=== PATIENT | female | born 1955 | race Two or more races ===

== ENCOUNTER → 2024-10-10 | Outpatient (CLI) | payer MEDICARE, SELFPAY ==
--- NOTE | 2024-10-10 14:56 | XR_ITS ---
Examination: MRI pelvis with intravenous contrast. MRI pelvis without intravenous contrast. Date and time of exam: October 10, 2024 1530 hours INDICATIONS: Lifting injury to the abdomen and pelvis 4 months ago with pelvic pain radiating down the legs difficulty paresthesias in the feet, abnormally thickened endometrial stripe 15 mm on pelvic sonogram September 17, 2024 Technique: Multiple axial, sagittal and coronal sections of the pelvis obtained. Transverse images, TR 6020, TE 107. T1 weighted transverse images, TR 582, TE 9.5. T2-weighted sagittal images, TR 4000, TE 105. T2-weighted sagittal images, TR 4000, TE 5. Coronal images, TR 4210, TE 107. Axial and coronal images are obtained post 12 cc intravenous injection, gadolinium. Findings: Uterus 8.54 x 5 cm Endometrial stripe is not thickened on this study and no enhancing mass on the postcontrast images is noted Bilateral ovarian follicular cysts as well as a simple 23 mm left ovarian cyst No free fluid in the pelvis No pelvic lymphadenopathy Bladder intact IMPRESSION: Endometrial stripe is not thickened on this study, recommend 6 month follow-up transvaginal pelvic sonography
== END | disposition home or self-care (01) ==
LOC: SMRI 14:42
PROVIDERS: PCP Nurse Practitioner Primary Care; Referring Provider Nurse Practitioner Primary Care; Visit Provider Nurse Practitioner Primary Care
DX: R93.89 Abnormal findings on diagnostic imaging of other specified body structures (principal)
CPT/HCPCS: 72197; A9579

== ENCOUNTER → 2024-11-19 | Outpatient (CLI) | payer MEDICARE, SELFPAY ==
--- NOTE | 2024-11-19 | XR_ITS ---
Examination: Bilateral hands, 6 views. Technique: AP, Oblique, Lateral each hand total 6 views Date and time of exam: November 19, 1999 2534 hours INDICATIONS: Injury to the hands one month ago, hand pain FINDINGS: Moderate osteopenia No fracture or dislocation involving either hand Mild bilateral osteoarthritis radiocarpal joints Mild bilateral osteoarthritis distal interphalangeal joints second through fifth digits No erosive arthritis No opaque foreign bodies Impression: Mild osteoarthritis as above
--- NOTE | 2024-11-19 | XR_ITS ---
Examination: Bilateral wrists 6 views TECHNIQUE: AP oblique lateral each wrist total 6 views Exam date and time: November 19, 1999 2539 hours INDICATIONS: Bilateral wrist pain one month FINDINGS: Bilateral mild osteoarthritis radiocarpal joints Mild to moderate osteopenia No fracture or dislocation involving either wrist Mild bilateral osteoarthritis first carpometacarpal joints No erosive arthritis No opaque foreign bodies IMPRESSION: Mild bilateral osteoarthritis
== END | disposition home or self-care (01) ==
LOC: CDIM 11:01
PROVIDERS: PCP Nurse Practitioner Primary Care; Referring Provider Nurse Practitioner Gerontology; Visit Provider Nurse Practitioner Gerontology
DX: M19.042 Primary osteoarthritis, left hand (principal); M19.041 Primary osteoarthritis, right hand; M19.032 Primary osteoarthritis, left wrist; M19.031 Primary osteoarthritis, right wrist
CPT/HCPCS: 73110; 73130

== ENCOUNTER → 2024-12-12 | Outpatient (CLI) | payer MEDICARE, MEDICAID, SELFPAY ==
--- NOTE | 2024-12-12 09:00 | XR_ITS ---
Examination: Breast ultrasound, unilateral, right complete Date and time of exam: December 12, 2024 0923 hours INDICATIONS: Mammogram April 11, 2024 13 mm oval asymmetry outer right breast CC view, 2.9 cm from the nipple Technique: Real-time silva scale ultrasonographic imaging performed right breast including all 4 quadrants as well as nipple retroareolar and axillary region. Findings: No cystic or solid mass IMPRESSION: BI-RADS Category 1: Negative study
--- NOTE | 2024-12-12 09:45 | XR_ITS ---
Examination: Diagnostic digital mammography, unilateral, right Computer aided detection 3-D breast Tomosynthesis, unilateral Date and time of exam: December 12, 2024 0915 hours INDICATIONS: Mammogram June 13, 2024, April 11, 2024 13 mm oval asymmetry outer right breast CC view Technique: Nonmagnified MLO, CC views of the right breast have been obtained, reconstructed from 3-D Tomosynthesis images. R2 computer aided detection program utilized for evaluation of suspicious masses and/or abnormal calcifications. 3-D Tomosynthesis images obtained. Findings: Scattered areas of fibroglandular density No suspicious masses currently identified Impression: BI-RADS category 2: Benign findings Recommend 6 month bilateral mammography follow-up
== END | disposition home or self-care (01) ==
PROVIDERS: PCP Nurse Practitioner Primary Care; Referring Provider Nurse Practitioner Primary Care; Visit Provider Nurse Practitioner Primary Care
DX: R92.321 Mammographic fibroglandular density, right breast (principal); N64.89 Other specified disorders of breast
CPT/HCPCS: 76641; 77061; 77065; G0279

== ENCOUNTER → 2025-04-16 | Outpatient (CLI) | payer MEDICARE, SELFPAY ==
--- NOTE | 2025-04-16 13:15 | XR_ITS ---
Examination: Transvaginal ultrasound of the pelvis, complete Technique: Transvaginal sonographic images pelvis performed using silva scale imaging Exam date and time: April 16, 2025 1320 hours INDICATIONS: MRI pelvis October 10, 2024 bilateral ovarian cysts FINDINGS: Uterus 7.7 cm endometrial stripe is thickened 12 mm Right ovary 2.2 cm arterial flow Left ovary obscured by bowel gas IMPRESSION: Abnormal thickening of the endometrial stripe, recommend continued 6 month follow-up transvaginal pelvic sonography.
== END | disposition home or self-care (01) ==
PROVIDERS: PCP Nurse Practitioner Primary Care; Referring Provider Nurse Practitioner Primary Care; Visit Provider Nurse Practitioner Primary Care
DX: R93.89 Abnormal findings on diagnostic imaging of other specified body structures (principal)
CPT/HCPCS: 76830

== ENCOUNTER → 2025-04-30 | Outpatient (CLI) | payer MEDICARE, SELFPAY ==
--- NOTE | 2025-04-30 09:15 | XR_ITS ---
Examination: Screening digital mammography, bilateral Computer aided detection 3-D breast Tomosynthesis, bilateral Date and time of exam: April 30, 2025 0858 hours Compared to mammograms dating to February 09, 2022 Indication: Screening left breast pain one month Technique: Nonmagnified MLO, CC views of the breasts to been obtained, reconstructed from 3-D Tomosynthesis images. R2 computer aided detection program utilized for evaluation of suspicious masses and/or abnormal calcifications. 3-D Tomosynthesis images obtained. Findings: Scattered areas of fibroglandular density. Benign calcifications. No interval suspicious masses Impression: BI-RADS category II: Benign Findings. Recommend 1 year follow-up mammogram. Consider repeat left breast sonography follow-up as clinically warranted
== END | disposition home or self-care (01) ==
LOC: CDIM 08:41
PROVIDERS: Referring Provider Nurse Practitioner Primary Care; Visit Provider Nurse Practitioner Primary Care
DX: Z12.31 Encounter for screening mammogram for malignant neoplasm of breast (principal); R92.323 Mammographic fibroglandular density, bilateral breasts; R92.1 Mammographic calcification found on diagnostic imaging of breast
CPT/HCPCS: 77063; 77067

== ENCOUNTER → 2025-09-27 | Outpatient (CLI) | payer MEDICARE, MEDICAID, SELFPAY ==
--- NOTE | 2025-09-27 14:36 | XR_ITS ---
Examination: Wrist, right 3 views Technique: Wrist AP, oblique, lateral 3 views Date and time of exam: September 27, 2025, 1440 hours INDICATIONS: Wrist pain 1 year. FINDINGS: Moderate osteopenia. No fracture or dislocation. No avascular necrosis No cortical bone destruction IMPRESSION: Moderate osteopenia No erosive or other significant arthritic change
--- NOTE | 2025-09-27 14:36 | XR_ITS ---
Examination: Hand, right 3 views Technique: Hand AP, oblique, lateral 3 views Date and time of exam: September 27 2025, 1440 hours INDICATIONS: Pain fifth digit radiating to the wrist beginning 1 year ago FINDINGS: Significant osteopenia No fracture No cortical bone obstruction No avascular necrosis Mild diffuse narrowing joints of the wrist and hand IMPRESSION: Mild diffuse narrowing joints of the wrist and hand, no erosive arthritis, no fractures
== END | disposition home or self-care (01) ==
LOC: CDIM 14:11
PROVIDERS: PCP Nurse Practitioner Primary Care
DX: M85.88 Other specified disorders of bone density and structure, other site (principal); M25.841 Other specified joint disorders, right hand; M25.831 Other specified joint disorders, right wrist
CPT/HCPCS: 73110; 73130